=== PATIENT | female | born 2005 | race Caucasian/White ===

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

== ENCOUNTER 2024-07-20 02:13 | Emergency (ER) | payer BC, SELFPAY ==
[2024-07-20] VITALS (9 sets, daily range): BP systolic 95–116; BP diastolic 62–74; PULSE 72–87; RESP 12–20; TEMP 36.4; O2SAT 97–100; BMI 21.8
--- OUTSIDE RECORDS SUMMARY | 2024-07-20 02:16 | XMS_ITS | Clinical Summary ---
Author Organization [employer] [facility] Address [address] [place] [id number] Care Team Providers Care Construction Plant Operator Name Role Phone Umu Marrufo MD Primary Care Provi soumya Allergies No known active allergies Medications omeprazole (PRILOSEC) 20 mg Delayed-Release capsule Take 20 mg by mouth. Active dicyclomine (BENTYL) 20 mg tabletIndications :Other constipation Take 1 Tablet (20 mg) by mouth 2 times daily if needed (IBS). 60 Tablet 1 3 Active escitalopram oxalate (LEXAPRO) 20 mg tabletIndications :Obsessive-compul sive disorder, unspecified type Take 1 Tablet (20 mg) by mouth once daily. 30 Tablet 3 Active busPIRone 7.5 mg tablet Take 7.5 mg by mouth two times daily. 3 Active hydrOXYzine HCL (ATARAX) 25 mg tablet TAKE 1 TO 2 TABLETS BY MOUTH THREE TIMES DAILY NEEDED FOR ANXIETY OR NAUSEA 3 Active levonorgestrel-et hinyl estrad, 0.15-30 mg-mcg, (LEVLEN; NORDETTE-28) 0.15-0.03 mg tabletIndications :Irregular menstrual bleeding Take 1 Tablet by mouth once daily. 84 Tablet 3 3 Active Active Problems Problem Noted Date Diagnosed Date Obsessive-compulsive disorder 07/15/2022 Bulimia nervosa 07/15/2022 Other constipation 10/10/2019 Resolved Problems Problem Noted Date Diagnosed Date Resolved Date Concussion with < 1 hr loss of consciousness 11/25/2021 Concussion with no loss of consciousness 06/23/2018 10/10/2019 Unspecified constipation 12/13/200711/2011 Hypertrophy of tonsil with adenoids 10/26/2007 12/09/2011 Chronic rhinitis 10/26/2007 12/16/2011 Encounters Date Type Department Care Team Description 04/26/2024 Transcribe Orders [facility] [address] [place] [address] Kaylee Ramírez MD from Last 3 Months Immunizations Immunization Administration Dates Next Due AMB Influenza, IIV3 (Age >=3 years)(Flu Clinic Only) 04/19/2008 COVID-19 vaccine ([employer] NTech 30mcg/0.3mL) MORIAH KAUR 09/20/2020,08/30/2020 [id number] (Pediarix) 01/02/2006,02/08,2004,10/10 DTaP-IPV (Kinrix) 12/05/2008 HIB PRP-OMP (PedvaxHIB) 01/02/2006,2004, HPV 9 (Gardasil 9) 12/02/2016,02/22/2016, 016 Hepatitis A (Peds) 12/13/2007,08/21/2006, 006 Hepatitis B (Peds) 2004 Influenza A (H1N1), Inactivated 04/27/2009 Influenza, IIV3 (Age 6-35 mos) 04/27/2009,2005,02/20/2005 Influenza, IIV4 03/06/2020,02/22/2016 MENINGOCOCCAL VACCINE 2 VIAL 2MO-55YO (MENVEO) 11/25/2021,11/06/2015 MMR 12/21/2009,08/26/2005 Meningococcal B 11/27/2022 Pneumococcal conj 7-Valent (Prevnar 7) 0 01/02/2006,02/20/2005,2004,10/10 [...] Date Recorded PHQ-2 TOTAL SCORE 2 11/27/2022 Financial Resource Strain Answer Date R ecorded Difficulty of Paying Living Expenses Not on file 05/09/2021 Difficulty of Paying Living Expenses Not on file 05/09/2021 Comments No Sex and Gender Information Value Date Recorded Sex Assigned at Not on file Legal 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 Gender Identity Not on file Sexual Orientation Not on file Occupation Industry Job Start Date Job End Date Student Not on file Not on file Not on file Obstetrics History Para Term AB IAB SAB Ectopic Multiple Livin g Live Births 0 0 0 0 0 0 0 0 0 0 0 Last Filed Vital Signs Vital Sign Reading Time Taken Comments Blood Pressure 90/60 11/27/2022 2:11 PM CDT Pulse 60 11/27/2022 2:11 PM CDT Temperature 36.5 C (97.7 F) 04/10/2022 8:41 AM RUBBER STAMP DIES INSPECTOR Respiratory Rate 18 05/05/2019 5:15 PM RUBBER STAMP DIES INSPECTOR Oxygen Saturation 98% 11/27/2022 2:11 PM CDT [...] Hepatitis C screening for age 18-79 2022 BMI (ht and wt on same day) for age 18+ 11/28/2023 11/27/2022 Depression screening for age 12+ 11/28/2023 11/27/2022, 07/15/2022, 11/25/2021, Additional history exists Well Child Check for age 3-20 11/28/2023 11/27/2022, 11/25/2021, 12/05/2019, Additional history exists Influenza Vaccine (#1) 2024 , 02/22/2016, 04/27/2009, Additional history exists Tetanus booster 11/05/2025 11/06/2015 Pneumococcal series for age 6-49 Aged Out 01/02/2006, 02/20/2005, 2004, Additional history exists No longer eligible based on patient's age to complete this topic Tdap Completed 11/06/2015 HPV series for age 9-26 Completed 12/03/19 17, 02/22/2016, 11/06/2015 Meningococcal series for age 11-21 Completed 11/25/2021, 11/06/2015 COVID-19 vaccine series Completed 01/21/20 24, 05/06/2021, 09/20/2020, Additional history exists Insurance [employer] CHOICE MEDICA CHOICE Care Teams Construction Plant Operator Relationship Specialty Start Date End Date Umu Marrufo MD [address] [place] [address] PCP - General Pediatric 12/15/11
[2024-07-20 02:43] LABS: Basophils Absolute Auto 0.02 K/uL (0.00-0.30); Basophils Percent Auto 0.3 % (0.0-3.0); Eosinophils Absolute Auto 0.07 K/uL (0.00-0.50); Eosinophils Percent Auto 0.9 % (0.0-7.0); Hematocrit 35.1 % (33.0-51.0); Hemoglobin* 11.7 gm/dL (12.0-16.0); Immature Granulocytes Abs Auto 0.01 K/uL (0.00-0.30); Immature Granulocytes Pct Auto 0.1 %; Lymphocytes Percent Auto 44.6 % (20-44); Mean Corpuscular HGB Conc 33 gm/dL (32-36); Mean Corpuscular Hemoglobin 31 pg (26-34); Mean Corpuscular Volume 94 fL (80-100); Monocytes Percent Auto 6.5 % (0.0-11.0); Neutrophils Absolute Auto 3.64 K/uL (1.7-7.0); Neutrophils Percent Auto 47.6 % (42.0-72.0); Platelet Count* 288 K/uL (140-440); RDW Coefficient of Variation % 12.8 % (11.5-15.5); Red Blood Count 3.73 m/uL (4.00-5.20); White Blood Count* 7.66 K/uL (4.50-11.00)
[2024-07-20 02:48] LABS: Slide Review Reflex No
--- NOTE | 2024-07-20 02:48 | ED.HEATRA ---
HPI - Head Injury General Time Seen by Provider: 02:48 Date Seen: 07/20/24 Chief complaint: Head Injury/Pain Stated complaint: Hit head today after concussion Thursday Time Seen by Provider: 07/20/24 02:42 Source: patient Mode of arrival: ambulatory Limitations: no limitations History of Present Illness HPI Narrative: 18-year-old female who presents today with head injury. Patient had a fall 2 days ago, hit her head, evaluated outside facility. Subsequently had another fall today, says she got lightheaded and passed out, has episodes like this before. Denies preceding chest pain or palpitations. Brought in tonight because of nausea and fatigue. Patient says she is scared to go to sleep, says she has not been eating much because she is not hungry. Recent cough and upper respiratory infection but that has resolved. Took Tylenol for this just prior to coming in. Photophobia. No numbness or tingling in the arms or legs, no neck pain. Related Data Home Medications ?Medication ?Instructions ?Recorded ?Confirmed buspirone 15 mg tablet 15 mg PO BID 05/01/23 05/01/23 escitalopram oxalate 20 mg tablet 20 mg PO DAILY 05/01/23 05/01/23 hydroxyzine HCl 25 mg tablet 25 - 50 mg PO 3XD PRN anxiety 05/01/23 05/01/23 levonorgestrel 0.15 mg-ethinyl 1 tab PO DAILY 05/01/23 05/01/23 estradiol 0.03 mg tablet (Michaelo (28)) pantoprazole 40 mg tablet,delayed 40 mg PO DAILY 09/24/23 release Allergies Allergy/AdvReac Type Severity Reaction Status Date / Time No Known Drug Allergies Allergy Verified 09/24/23 11:41 [facility] Medical History Depression ?F32.A - Depression, unspecified (ICD-10) Anxiety ?F41.9 - Anxiety disorder, unspecified (ICD-10) Surgical History History of laparoscopic cholecystectomy ?Z90.49 - Acquired absence of other specified parts of digestive tract (ICD-10) Social History Smoking Status: Never smoker Second hand tobacco smoke exposure: No How often do you have a drink containing alcohol: never AUDIT-C Alcohol total score: 0 Non-prescribed substance use: denies use Exam Narrative: Exam Narrative: General: Well-developed and well-nourished, no acute distress Head: Atraumatic and normocephalic Eyes: Pupils are equal reactive, extraocular motions intact, conjunctiva clear ENT: External nose and ears are normal, posterior pharynx without erythema or exudate Neck: No midline cervical tenderness, full spontaneous range of motion the neck, trachea midline, no adenopathy Heart: Regular rate and rhythm no murmurs or thrills Lungs: Clear to auscultation bilaterally without wheezes or crackles Abdomen: Soft, nontender, nondistended with active bowel sounds Musculoskeletal: No tenderness, deformity, or edema Neurologic: Awake, slow to answer questions, lays with eyes closed and mumbles answers, no focal neurologic deficits, resists eye opening Psych: Mood and affect are appropriate Skin: No rashes Const: Vital Signs, click to edit/add: Vital Signs - 24 hr 07/20/24 02:21 07/20/24 03:01 07/20/24 03:15 Temperature 97.6 F Pulse Rate 76 87 Pulse Rate [Pulse Oximeter] 85 Respiratory Rate 16 12 Blood Pressure 106/67 Blood Pressure [Ri ght Upper Arm] 108/74 Pulse Oximetry 97 100 100 Oxygen Delivery Me thod Room Air 07/20/24 03:31 Temperature Pulse Rate 72 Pulse Rate [Pulse Oximeter] Respiratory Rate 15 Blood Pressure 106/62 Blood Pressure [Ri ght Upper Arm] Pulse Oximetry 98 Oxygen Delivery Me thod Course Course ED Course: Reviewed prior emergency department visit from July 18 was patient was seen after a head injury, reports that she stood up and passed out, fell and hit her head. Was seen at an outside department, CT scan of the head was performed which was negative. prior cardiogram May 2024 was normal. Patient seen today with headache, fatigue, nausea decreased appetite in the setting of consecutive head injuries. History of syncope. On exam here, no external signs of head trauma, no focal neurologic deficits. Suspect concussion syndrome, labs ordered to evaluate for other possible causes of patient's fatigue and syncope. No tachycardia, hypoxia, chest pain, shortness of breath suggest pulmonary emboli, no D-dimer or CT PE indicated at this time. EKG independently interpreted by me performed at 2:26 a.m. demonstrates sinus rhythm with nonspecific ST changes, rate 82, ST depression 2, 3, AVF as well as V1. Reviewed prior from outside hospital from April 2024, ST depression and T-wave inversion in 2, 3, AVF are new. Reevaluation(s) Time of Reevaluation #1: 04:18 Reevaluation #1: Labs independently interpreted by me with normal CBC other than mild anemia, normal basic panel, negative troponin, normal magnesium. Repeat EKG was performed and previously seen ST abnormalities are new. Will discuss with Cardiology. CT scan of the head and panel interpreted by me negative for acute findings, radiology interpretation agrees. EKG independently interpreted by me performed at 4:04 a.m. demonstrates sinus rhythm rate 67, nonspecific T-wave changes with slight depression in to, previously seen depressions in 3 and AVF are absent. QTC 405, IA 138. Time of Reevaluation #2: 04:58 Reevaluation #2: Care discussed with Dr. Rivas, cardiology at [facility] who recommends Holter monitor/Zio patch, no further recommendations at this time patient is stable for discharge Vital Signs Vital signs: Initial Vital Signs Temperature 97.6 F 07/20/24 02:21 Temperature Source Temporal Artery Scan 07/20/24 02:21 Pulse Rate 85 07/20/24 02:21 Respiratory Rate 16 07/20/24 02:21 Blood Pressure 108/74 07/20/24 02:21 Blood Pressure Mean 85 07/20/24 02:21 Pulse Oximetry 97 07/20/24 02:21 Oxygen Delivery Method Room Air 07/20/24 02:21 Vital Signs Temperature 97.6 F 07/20/24 02:21 Pulse Rate 85 07/20/24 02:21 Respiratory Rate 16 07/20/24 02:21 Blood Pressure 108/74 07/20/24 02:21 Pulse Oximetry 97 07/20/24 02:21 Oxygen Delivery Method Room Air 07/20/24 02:21 Temperature 97.6 F 07/20/24 02:21 Pulse Rate 72 07/20/24 03:31 Respiratory Rate 15 07/20/24 03:31 Blood Pressure 106/62 07/20/24 03:31 Pulse Oximetry 98 07/20/24 03:31 Oxygen Delivery Method Room Air 07/20/24 02:21 Medications Administered Medications: Discontinued Medications Generic Name Dose Route Start Last Admin Trade Name Cici PRN Reason Stop Dose Admin Sodium Chloride 500 mls @ 500 mls/hr 07/20/24 02:58 07/20/24 03:50 0.9 % Sodium Chloride 500 Ml IV 07/20/24 03:57 Infused .Q1H ONE Infusion Ketorolac Tromethamine 15 mg 07/20/24 02:58 07/20/24 03:04 Ketorolac 15 Mg/Ml Inj IVP 07/20/24 02:59 15 mg ONCE ONE Administration Ondansetron HCl 4 mg 07/20/24 02:58 07/20/24 03:04 Ondansetron 2 Mg/Ml Inj IVP 07/20/24 02:59 4 mg ONCE ONE Administration MDM - Head Injury Lab Data Labs: Lab Results 07/20/24 07/20/24 Range/Units 02:30 04:41 WBC 7.66 (4.50-11.00) K/uL RBC 3.73 L (4.00-5.20) m/uL Hgb 11.7 L (12.0-16.0) gm/dL Hct 35.1 (33.0-51.0) % MCV 94 (80-100) fL MCH 31 (26-34) pg MCHC 33 (32-36) gm/dL RDW Coeff of Jatin 12.8 (11.5-15.5) % Plt Count 288 (140-440) K/uL Neut % (Auto) 47.6 (42.0-72.0) % Lymph % (Auto) 44.6 H (20-44) % Yancey % (Auto) 6.5 (0.0-11.0) % Eos % (Auto) 0.9 (0.0-7.0) % Baso % (Auto) 0.3 (0.0-3.0) % Neut # (Auto) 3.64 (1.7-7.0) K/uL Lymph # (Auto) 3.40 H (0.90-2.90) K/uL Yancey # (Auto) 0.50 (0.00-0.90) K/UL Eos # (Auto) 0.07 (0.00-0.50) K/uL Baso # (Auto) 0.02 (0.00-0.30) K/uL Abs Immat Gran (auto) 0.01 (0.00-0.30) K/uL Imm/Tot Granulo (auto) 0.1 % Sodium 138 (135-149) mmol/L Potassium 3.7 (3.6-5.1) mmol/L Chloride 105 (96-114) mmol/L Carbon Dioxide 25 (20-32) mmol/L Anion Gap 8 (7-15) mEq/L BUN 9 (5-24) mg/dL Creatinine 0.6 (0.6-1.2) mg/dL Estimated Creat Clear 141.18 Estimated GFR 133 ml/min Glucose 82 (60-115) mg/dL Calcium 9.0 (8.7-10.8) mg/dL Magnesium 2.0 (1.5-2.6) mg/dL Troponin I < 0.01 L (0.01-0.04) ng/mL POC Troponin I 0.00 L (0.01-0.04) ng/ml Discharge Plan Discharge Clinical Impression: Concussion without loss of consciousness, Recurrent syncope Patient Disposition: Home w/ Parent or Adult Condition: Stable Instructions: Syncope (ED), Concussion (ED), Post Concussion Syndrome (ED) Additional Instructions: Lots of rest, make sure maintaining hydration. Avoid alcohol, caffeine Follow-up with your primary care doctor for further evaluation and treatment Activity Level: Activity as Tolerated Discharge Diet: Regular Diet Detail: Oral fluid intake should be encouraged to a target of 3 L daily and a daily salt intake of 8 to 12 g of sodium chloride (3.2 to 4.8 g of sodium) Available sources of sodium include table salt, sports tablets, sports beverages, oral rehydration salts, and some soups. Prescriptions: No Action pantoprazole 40 mg tablet,delayed release (DR/EC) 40 mg PO DAILY buspirone 15 mg tablet 15 mg PO BID levonorgestrel-ethinyl estrad [Luivelo (28)] 0.15-0.03 mg tablet 1 tab PO DAILY hydroxyzine HCl 25 mg tablet 25 - 50 mg PO 3XD PRN (Reason: anxiety) escitalopram oxalate 20 mg tablet 20 mg PO DAILY Follow Up/Referrals: Umu Marrufo MD [Primary Care Provider] - Stand Alone Forms: SeeMore Interactive Info Instructions
[2024-07-20 02:58] LABS: Chloride* 105 mmol/L (96-114)
[2024-07-20 02:59] LABS: Potassium* 3.7 mmol/L (3.6-5.1); Sodium* 138 mmol/L (135-149)
[2024-07-20 03:02] LABS: Anion Gap 8 mEq/L (7-15); Blood Urea Nitrogen* 9 mg/dL (5-24); Carbon Dioxide* 25 mmol/L (20-32); Creatinine* 0.6 mg/dL (0.6-1.2); Est. Creatinine Clearance* 141.18; Estimated Glomerular Filt Rate 133 ml/min; Glucose* 82 mg/dL (60-115)
[2024-07-20] MEDS: 0.9 % SODIUM CHLORIDE 500 ML 500 ML IV (03:02)
--- OUTSIDE RECORDS SUMMARY | 2024-07-20 03:03 | XMS_ITS | Clinical Summary ---
Author Organization [employer] [facility] Address [address] [place] [address] Care Team Providers Care Business Team Leader Name Role Phone Umu Marrufo MD Primary [...] Department Care Team Description 04/26/2024 Transcribe Orders [facility] [address] [place] [address] Kaylee Ramírez MD from Last 3 Months Immunizations Immunization Administration Dates Next Due AMB Influenza, IIV3 (Age >=3 years)(Flu Clinic Only) 04/19/2008 COVID-19 vaccine ([employer] NTech 30mcg/0.3mL) MORIAH KAUR 09/20/2020,08/30/2020 [id number] (Pediarix) 01/02/2006,02/08,2004,10/10 DTaP-IPV (Kinrix) 12/05/2008 HIB PRP-OMP [...] on file 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
[2024-07-20] MEDS: ONDANSETRON 2 MG/ML inj 4 MG IVP (03:04)
[2024-07-20] MEDS: KETOROLAC 15 MG/ML inj IVP (03:04)
[2024-07-20 03:28] LABS: Troponin I* < 0.01 ng/mL (0.01-0.04)
== END 2024-07-20 05:23 | disposition home or self-care (01) ==
PROVIDERS: Emergency Provider Family Medicine; PCP Pediatrics
DX: S06.0X0A Concussion without loss of consciousness, initial encounter (principal); W19.XXXA Unspecified fall, initial encounter; R55 Syncope and collapse
CPT/HCPCS: 36415; 70450; 80048; 83735; 84484; 85025; 93005; 96374; 96375; 99284; 99285; J1885; J2405; J7030

== ENCOUNTER 2025-05-08 13:44 | Emergency (ER) | payer BC, SELFPAY ==
--- OUTSIDE RECORDS SUMMARY | 2025-05-08 13:48 | XMS_ITS | Clinical Summary ---
Author Organization [facility] Address [address] [place] [id number] Care Team Providers Care Vice President Biostatistics Name Role Phone Clinician, Not Found MD Primary Care Provider Un available Source Comments You are receiving this document as you are listed as the primary care provider,follow-up provider, or the patient has been referred to you for consultation.This is in compliance with the Medicare and[facility]ca[facility] EHR Incentive Program,which states Providers who transition their patient to another setting of careor provider of care or refers their patient to another provider of care shouldprovide summary care record for each transition of care or referral. [employer] Allergies No known active allergies Medications MedicationSigDispense QuantityRefillsLast FilledStart DateEnd DateStatus FLUoxetine (PROZAC) 20 MG capsule Take 60 mg by mouth daily.Active linaCLOtide (LINZESS OR) Active dicyclomine (BENTYL) 20 MG tablet Take 20 mg by mouth 4 times daily before meals and at bedtime.Active omeprazole (PRILOSEC) 20 MG capsule Take 20 mg by mouth daily. Take 1 hour before a meal.Active Levonorgestrel-Ethinyl Estrad (VIENVA OR) Active Active Problems ProblemNoted DateDiagnosed DateIrritable bowel syndrome with constipation 08/29/2021GERD (gastroesophageal reflux disease)2Bulimia nervosa 08/22/2021GAD (generalized anxiety disorder)2Current moderate episode of major depressive disorder without prior icadzqq3708/22/2021 Immunizations ImmunizationAdministration DatesNext DuePfizer Monovalent 12+ Purple Top 05/06/2021,09/21/2020,08/30/2020 Social History Tobacco UseTypesPacks/DayYears UsedDateSmoking Tobacco: NeverSmokeless Tobacco: NeverAlcohol UseStandard Drinks/WeekCommentsNever0 (1 standard drink = 0.6 oz pure alcohol)CommentsUnknownSex and Gender InformationValueDate Recorded Sex Assigned at BirthNot on fileLegal DgaTftjpc82/15/2022 10:08 AM CSTGender IdentityNot on fileSexual OrientationNot on file Last Filed Vital Signs Vital SignReadingTime TakenCommentsBlood Migzsaih29/6306 1:29 PM CDT Bjekf387610/15/2021 1:29 PM OEKZvrqabdysbx11.8 ??C (98.2 ??F)10/15/2021 1:27 PM CDTRespiratory Rate--Oxygen Saturation--Inhaled Oxygen Concentration--Utuetw77.8 kg (131 lb 12.8 oz)10/15/2021 1:27 PM ALRZeulhp861.6 cm (5' 3.62)10/15/2021 1:27 PM CDTBody Mass Index22.8910/15/2021 1:27 PM CDT Plan of Treatment Health MaintenanceDue DateLast EbgjDunsgsntKzfiswlbo72/08/2005Hep C Screening (Preventive Services)2004MenB Immunization Odeyqsrgub47/08/2005HIV Screening (Preventive Services)2020MCV4 Vaccine (2 - 2-dose series) Adult Preventive Visit2022HepB Vaccine (1)08/17/2023 COVID-19 Vaccine ( season), 09/21/2020, 08/30/2020Influenza Vaccine (#1), 02/22/2016, 04/27/2009, Additional history existsDTaP/Tdap/Td Vaccine (7 - Tdap)6011/06/2015, 12/05/2008, 01/02/2006, Additional history existsZoster/Shingles Vaccine (1 of 2)2054Hib ArtafrkCintmlmod16/25/2006, 2004, 2004Pneumococcal VaccineAged Out01/02/2006, 02/20/2005, 2004, Additional history existsNo longer eligible based on patient's age to complete this topicHepA Vaccine Kzesptaqf28/04/2008, 08/21/2006, 08/26/2005IPV (Polio) VaccineCompleted 12/05/2008, 01/02/2006, 02/20/2005, Additional history existsHPV Vaccine Smrjzjrpu11/25/2017, 02/22/2016, 11/06/2015 Insurance * Guarantor: Ian BIANCHI TypeRelation to PatientDate of BirthPhone Billing AddressPersonal/PeqpplNopkyo[birth year][address] [place] [id number] Care Teams Team MemberRelationshipSpecialtyStart DateEnd Date Clinician, Not Found, [place] [address] PCP - [facility]08/22/21
--- OUTSIDE RECORDS SUMMARY | 2025-05-08 13:48 | XMS_ITS | Clinical Summary ---
Author Organization [facility] Address [address] [place] [id number] Care Team Providers Care Derrick Boat Leverman Name Role Phone Umu Marrufo MD Primary Care Provi soumya Allergies No known active allergies Medications MedicationSigDispense QuantityRefillsLast FilledStart DateEnd DateStatus omeprazole (PRILOSEC) 20 mg Delayed-Release capsule Take 20 mg by mouth.Active dicyclomine (BENTYL) 20 mg tablet Indications:Other constipationTake 1 Tablet (20 mg) by mouth 2 times daily if needed (IBS). 60 Tablet ctive escitalopram oxalate (LEXAPRO) 20 mg tablet Indications:Obsessive-compulsive disorder, unspecified typeTake 1 Tablet (20 mg) by mouth once daily. 30 Tablet 07/15/2022ctive busPIRone 7.5 mg tablet Take 7.5 mg by mouth two times daily.11/17/2022ctive hydrOXYzine HCL (ATARAX) 25 mg tablet TAKE 1 TO 2 TABLETS BY MOUTH THREE TIMES DAILY NEEDED FOR ANXIETY OR NAUSEA 10/02/2022ctive levonorgestrel-ethinyl estrad, 0.15-30 mg-mcg, (LEVLEN; NORDETTE-28) 0.15-0.03 mg tablet Indications:Irregular menstrual bleedingTake 1 Tablet by mouth once daily. 84 Tablet ctive Active Problems ProblemNoted DateDiagnosed DateObsessive-compulsive moqvpzcz52/07/2023Bulimia orcngdt4107/15/2022Other /01/2020 Resolved Problems ProblemNoted DateDiagnosed DateResolved DateConcussion with < 1 hr loss of jiawfhabwhsrb06oncussion with no loss of consciousness Unspecified pnjnncdopxxf16Hypertrophy of tonsil with dnfjalnh78Chronic knajfojq52 Immunizations ImmunizationAdministration DatesNext DueAMB Influenza, IIV3 (Age >=3 years)(Flu Clinic Only)04/19/2008COVID-19 vaccine ([facility] [facility] [employer] 30mcg/0.3mL) PF, MDV 09/20/2020,0824RRbC-LwaX-FGG (Pediarix)01/02/2006,02/20/2005,2004, 2004DTaP-IPV (Kinrix)12/05/2008HIB PRP-OMP (PedvaxHIB)01/02/2006, 2004,2004HPV 9 (Gardasil 9)12/02/2016,02/22/2016,11/06/2015Hepatitis A (Peds)12/13/2007,08/21/2006,08/26/2005Hepatitis B (Peds)2004Influenza A (H1N1), Vjhcnjpwbhm22/18/2009Influenza, IIV3 (Age 6-35 mos)04/27/2009,03/06/2006 ,02/20/2005Influenza, HLY583,02/22/2016MENINGOCOCCAL VACCINE 2 VIAL 2MO- 55YO (MENVEO)11/25/2021,11/06/2015MMR12/21/2009,08/26/2005Meningococcal B 3Pneumococcal conj 7-Valent (Prevnar 7)01/02/2006,02/20/2005,2004 ,2004Tdap11/06/2015Varicella Mwwxlfr1712/21/2009,08/26/2005 Family History Medical HistoryRelationNameCommentsAsthmaBrother 1GI DiseaseBrother 2GERDGI DiseaseFatherGERDHeart DiseaseMaternal GrandmotherHyperlipidemiaOtherDad's side AsthmaPaternal UncleAnesthesia ProblemNo Family HistoryDiabetesNo Family History RelationNameStatusCommentsBrother 1Brother 2FatherMaternal GrandmotherOther Paternal Uncle Social History Tobacco UseTypesPacks/DayYears UsedDateSmoking Tobacco: NeverSmokeless Tobacco: Never Tobacco Cessation:Counseling Given: No Comments:no exposure Alcohol UseStandard Drinks/WeekCommentsNo0 (1 standard drink = 0.6 oz pure alcohol)PHQ-2AnswerDate RecordedPHQ-2 TOTAL TETLG106Financial Resource StrainAnswerDate RecordedDifficulty of Paying Living ExpensesNot on file 1Difficulty of Paying Living ExpensesNot on file1 CommentsNoSex and Gender InformationValueDate RecordedSex Assigned at BirthNot on fileLegal OabUjmznx31/14/2013 7:09 AM CSTGender IdentityNot on fileSexual OrientationNot on fileOccupationIndustryJob Start DateJob End DateStudentNot on fileNot on fileNot on file Obstetrics History GravidaParaTermPretermABIABSABEctopicMultipleLivingLive [id number] Last Filed Vital Signs Vital SignReadingTime TakenCommentsBlood Ryccpcia06/60011/27/2022 2:11 PM CDT Mfxal0910/20/2023 2:11 PM GXZIegwhmzlilf81.5 ??C (97.7 ??F)04/10/2022 8:41 AM CSTRespiratory Mwpe505107/06/2018 5:15 PM CSTOxygen Qreemsivpg55%11/27/2022 2:11 PM CDTInhaled Oxygen Concentration--Gymexp64.9 kg (136 lb 6.4 oz)11/27/2022 2:11 PM VMXRkomew857.6 cm (5' 3.23)11/27/2022 2:11 PM CDTBody Mass Index23.99 11/27/2022 2:11 PM CDT Plan of Treatment Health MaintenanceDue DateLast DoneCommentsHIV for age 15-65008/17/2019Hepatitis C screening for age 18-793BMI (ht and wt on same day) for age 18+ /3Depression screening for age 12+/, 07/15/2022, 11/25/2021, Additional history existsWell Child Check for age 3-20 /, 11/25/2021, 12/05/2019, Additional history existsCOVID-19 vaccine series (2024- season)/04/2024, 05/06/2021, 09/20/2020, Additional history existsInfluenza Vaccine (#1)/, 02/22/2016, 04/27/2009, Additional history existsTetanus jdpcbvu72 Hepatitis B series for 19+Spugxiuqo45/25/2006, 02/20/2005, 2004, Additional history existsPneumococcal series for age 6-49Aged Out01/02/2006, 02/20/2005, 2004, Additional history existsNo longer eligible based on patient's age to complete this topicHPV series for age 9-52Byjulcojs54/25/2017, 02/22/2016, 11/06/2015Meningococcal series for age 11-05Fblkhomjh13/18/2022, 11/06/[address] [facility] [facility] [address] * Guarantor: Mitra Bianchi TypeRelation to PatientDate of BirthPhone Billing AddressPersonal/NqxkfuHowjtk01/10/1966 [address] [place] [address] [place] [id number] Care Teams Team MemberRelationshipSpecialtyStart DateEnd Date [place] [address] [address] PCP - GeneralPediatric12/15/11
[2025-05-08 13:56] VITALS: BP 116/67; PULSE 116; RESP 20; TEMP 37.2; O2SAT 100; BMI 24.8
--- NOTE | 2025-05-08 14:18 | ED.GENADULT ---
HPI - General Adult General Date Seen: 05/08/25 <Mesha Rowley MD - Last Filed: 05/11/25 00:08> Chief complaint: Abdominal Pain <Mesha Rowley MD - Last Filed: 05/11/25 00:08> Stated complaint: fever, R abdomen pain <Mesha Rowley MD - Last Filed: 05/11/25 00:08> Time Seen by Provider: 05/08/25 13:47 <Mesha Rowley MD - Last Filed: 05/11/25 00:08> History of Present Illness HPI narrative: Patient is a 19-year-old who presents here with her mom for evaluation of multiple symptoms. She has been feeling ill since yesterday, complains of severe right ear pain, severe sore throat, and severe right-sided abdominal pain which now radiates up into the right chest. She notes a presumed fever at home although she has not checked her temperature. She took Tylenol last night but has not taken anything today. She has had some nausea no vomiting. Denies diarrhea or constipation. No urinary symptoms. She has also had a cough. She is status post cholecystectomy and tonsillectomy. <Mesha Rowley MD - Last Filed: 05/11/25 00:08> Related Data Home medications: Home Medications ?Medication ?Instructions ?Recorded ?Confirmed buspirone 15 mg tablet 15 mg PO BID 05/01/23 05/08/25 hydroxyzine HCl 25 mg tablet 25 - 50 mg PO 3XD PRN anxiety 05/01/23 05/08/25 pantoprazole 40 mg tablet,delayed 40 mg PO DAILY 09/24/23 05/08/25 release <Mesha Rowley MD - Last Filed: 05/11/25 00:08> Allergies/adverse reactions: Allergies Allergy/AdvReac Type Severity Reaction Status Date / Time No Known Drug Allergies Allergy Verified 05/08/25 13:56 <Mesha Rowley MD - Last Filed: 05/11/25 00:08> Review of Systems Status of ROS: Reports: 10 or more systems reviewed and unremarkable except as noted in History and below <Mesha Rowley MD - Last Filed: 05/11/25 00:08> [facility] Medical History: Medical History Depression ?F32.A - Depression, unspecified (ICD-10) Anxiety ?F41.9 - Anxiety disorder, unspecified (ICD-10) <Mesha Rowley MD - Last Filed: 05/11/25 00:08> Surgical History: Surgical History History of laparoscopic cholecystectomy ?Z90.49 - Acquired absence of other specified parts of digestive tract (ICD-10) <Mesha Rowley MD - Last Filed: 05/11/25 00:08> Social History: Social History Smoking Status: Never smoker Second hand tobacco smoke exposure: No How often do you have a drink containing alcohol: never AUDIT-C Alcohol total score: 0 Non-prescribed substance use: denies use <Mesha Rowley MD - Last Filed: 05/11/25 00:08> Exam Narrative: Exam Narrative: Vital signs reviewed In general, an alert, nontoxic Head: Normocephalic, atraumatic. Eyes: Sclera clear. Pupils equal and reactive. ENT: Mucous membranes moist. throat is normal, tonsils absent. TMs normal bilaterally. Neck: Supple without adenopathy. No stridor. Heart: Mildly tachycardic, no murmur. Lungs: Clear. No increased work of breathing, crackles or wheezes. No CVA tenderness. Abdomen: Abdomen is generally soft, she has voluntary guarding throughout her abdomen but states that it is only tender in the right side of her abdomen and the epigastrium. Extremities: Well perfused, pulses intact. No significant edema. Neurologic: Alert, conversant. Speech fluent, face symmetric. Moves all extremities equally. Skin: Warm, dry well perfused. Affect: Tearful <Mesha Rowley MD - Last Filed: 05/11/25 00:08> Const: Vital Signs, click to edit/add: Vital Signs - 24 hr 05/08/25 13:56 Temperature 98.9 F Pulse Rate [Left P ulse Oximeter] 116 H Respiratory Rate 20 Blood Pressure [Ri ght Upper Arm] 116/67 Pulse Oximetry 100 Oxygen Delivery Me thod Room Air <Mesha Rowley MD - Last Filed: 05/11/25 00:08> Vital Signs, click to edit/add: Vital Signs - 24 hr 05/08/25 13:56 Temperature 98.9 F Pulse Rate [Left P ulse Oximeter] 116 H Respiratory Rate 20 Blood Pressure [Ri ght Upper Arm] 116/67 Pulse Oximetry 100 Oxygen Delivery Me thod Room Air <Camilo León MD - Last Filed: 05/08/25 19:11> Course Course ED Course: Patient presents with multiple flu like symptoms, reported fever, afebrile here, as well as significant abdominal pain. Unclear whether the abdominal pain is just part of a larger illness or whether this represents a coincidental alternative process such as ovarian cyst, kidney stone, appendicitis, ovarian torsion, ectopic , etcetera. as such, I have ordered lab work as well as a urine, urine test, chest x-ray. She feels this pain up in the right upper chest is probably related to her GERD as she did not take her medication today but will rule out a pneumonia, Pneumothorax, etcetera. Will give some normal saline, Toradol, Zofran for symptomatic relief. Chest x-ray by my review negative, radiology read negative as well. Blood work is notable for mildly increased white blood cell count 13 with a left shift at 87%. Electrolytes, LFTs, lipase all normal. Lactate is normal. Urinalysis likewise negative aside from trace ketones, test negative, viral swab and strep all negative as well. She responded well to Toradol and Zofran initially but pain did come back, she continues to complain of right-sided abdominal pain I think ruling out an intra-abdominal source such as appendicitis, ovarian cyst etcetera it is worthwhile. CT scan of the abdomen ordered. Signed out to oncoming physician for final disposition and plan <Mesha Rowley MD - Last Filed: 05/11/25 00:08> Reevaluation(s) Time of Reevaluation #1: 16:58 <Camilo León MD - Last Filed: 05/08/25 19:11> Reevaluation #1: Reviewed radiology interpretation CT scan which shows prominence of the right adnexa, given the patient is having right lower quadrant abdominal pain, pelvic ultrasound is ordered IMPRESSION: 1. Subtle asymmetric prominence of the right adnexa compared to the left, not well evaluated on CT. A follow up pelvic ultrasound may be performed for further evaluation if this patient is having right-sided pelvic pain. 2. Indeterminate thickening of the cecum and proximal ascending colon, likely due to underdistention rather than colitis. Partially obscured appendix appears to be nondilated and without ancillary finding of acute appendicitis. <Camilo León MD - Last Filed: 05/08/25 19:11> Time of Reevaluation #2: 18:47 <Camilo León MD - Last Filed: 05/08/25 19:11> Reevaluation #2: IMPRESSION: Intrauterine device which appears to be in appropriate position. Multiple tiny bilateral ovarian follicles. Nonspecific finding but recommend correlation for history of PCOS. No torsion. <Camilo León MD - Last Filed: 05/08/25 19:11> Time of Reevaluation #3: 18:48 <Camilo León MD - Last Filed: 05/08/25 19:11> Reevaluation #3: Patient recheck, discussed findings on ultrasound. No evidence for ovarian torsion, ectopic , ruptured ovarian cyst. CT scan without evidence of acute inflammatory from process in the abdomen or pelvis to explain patient's pain. Labs with mild leukocytosis and slightly elevated CRP. Patient is stable for discharge with oxycodone and Zofran for symptom management, close follow-up with primary care. Return to emergency department precautions discussed. <Camilo León MD - Last Filed: 05/08/25 19:11> Additional Reevaluation(s): 190 patient recheck, comfortable and stable for discharge <Camilo León MD - Last Filed: 05/08/25 19:11> Vital Signs Vital signs: Initial Vital Signs Temperature 98.9 F 05/08/25 13:56 Temperature Source Temporal Artery Scan 05/08/25 13:56 Pulse Rate 116 H 05/08/25 13:56 Respiratory Rate 20 05/08/25 13:56 Blood Pressure 116/67 05/08/25 13:56 Blood Pressure Mean 83 05/08/25 13:56 Blood Pressure Position Supine 05/08/25 13:56 Pulse Oximetry 100 05/08/25 13:56 Oxygen Delivery Method Room Air 05/08/25 13:56 Vital Signs Temperature 98.9 F 05/08/25 13:56 Pulse Rate 116 H 05/08/25 13:56 Respiratory Rate 20 05/08/25 13:56 Blood Pressure 116/67 05/08/25 13:56 Pulse Oximetry 100 05/08/25 13:56 Oxygen Delivery Method Room Air 05/08/25 13:56 Temperature 98.9 F 05/08/25 13:56 Pulse Rate 99 05/08/25 18:00 Respiratory Rate 18 05/08/25 18:00 Blood Pressure 98/76 05/08/25 18:00 Pulse Oximetry 99 05/08/25 18:00 Oxygen Delivery Method Room Air 05/08/25 18:00 <Mesha Rowley MD - Last Filed: 05/11/25 00:08> Initial Vital Signs Temperature 98.9 F 05/08/25 13:56 Temperature Source Temporal Artery Scan 05/08/25 13:56 Pulse Rate 116 H 05/08/25 13:56 Respiratory Rate 20 05/08/25 13:56 Blood Pressure 116/67 05/08/25 13:56 Blood Pressure Mean 83 05/08/25 13:56 Blood Pressure Position Supine 05/08/25 13:56 Pulse Oximetry 100 05/08/25 13:56 Oxygen Delivery Method Room Air 05/08/25 13:56 Vital Signs Temperature 98.9 F 05/08/25 13:56 Pulse Rate 116 H 05/08/25 13:56 Respiratory Rate 20 05/08/25 13:56 Blood Pressure 116/67 05/08/25 13:56 Pulse Oximetry 100 05/08/25 13:56 Oxygen Delivery Method Room Air 05/08/25 13:56 Temperature 98.9 F 05/08/25 13:56 Pulse Rate 99 05/08/25 18:00 Respiratory Rate 18 05/08/25 18:00 Blood Pressure 98/76 05/08/25 18:00 Pulse Oximetry 99 05/08/25 18:00 Oxygen Delivery Method Room Air 05/08/25 18:00 <Camilo León MD - Last Filed: 05/08/25 19:11> Medications Administered Medications: Discontinued Medications Generic Name Dose Route Start Last Admin Trade Name Freq PRN Reason Stop Dose Admin Sodium Chloride 1,000 mls @ 1,000 mls/hr 05/08/25 14:30 12/29/25 16:06 0.9 % Sodium Chloride 1000 Ml IV 05/08/25 15:29 Infused .Q1H YANETH Infusion Ketorolac Tromethamine 15 mg 05/08/25 14:16 05/08/25 14:46 Ketorolac 15 Mg/Ml Inj IVP 05/08/25 14:17 15 mg ONCE ONE Administration Morphine Sulfate 4 mg 05/08/25 16:08 05/08/25 16:16 Morphine 4 Mg/Ml Inj IVP 05/08/25 16:09 4 mg ONCE ONE Administration Morphine Sulfate 2 mg 05/08/25 18:22 05/08/25 18:34 Morphine 2 Mg/Ml Inj IVP 05/08/25 18:23 2 mg ONCE ONE Administration Ondansetron HCl 4 mg 05/08/25 14:16 05/08/25 14:46 Ondansetron 2 Mg/Ml Inj IVP 05/08/25 14:17 4 mg ONCE ONE Administration Ondansetron HCl 4 mg 05/08/25 18:47 05/08/25 18:57 Ondansetron 2 Mg/Ml Inj IVP 05/08/25 18:48 4 mg ONCE ONE Administration <Mesha Rowley MD - Last Filed: 05/11/25 00:08> Discontinued Medications Generic Name Dose Route Start Last Admin Trade Name Freq PRN Reason Stop Dose Admin Sodium Chloride 1,000 mls @ 1,000 mls/hr 05/08/25 14:30 05/08/25 16:06 0.9 % Sodium Chloride 1000 Ml IV 05/08/25 15:29 Infused .Q1H YANETH Infusion Ketorolac Tromethamine 15 mg 05/08/25 14:16 05/08/25 14:46 Ketorolac 15 Mg/Ml Inj IVP 05/08/25 14:17 15 mg ONCE ONE Administration Morphine Sulfate 4 mg 05/08/25 16:08 05/08/25 16:16 Morphine 4 Mg/Ml Inj IVP 05/08/25 16:09 4 mg ONCE ONE Administration Morphine Sulfate 2 mg 05/08/25 18:22 05/08/25 18:34 Morphine 2 Mg/Ml Inj IVP 05/08/25 18:23 2 mg ONCE ONE Administration Ondansetron HCl 4 mg 05/08/25 14:16 05/08/25 14:46 Ondansetron 2 Mg/Ml Inj IVP 05/08/25 14:17 4 mg ONCE ONE Administration Ondansetron HCl 4 mg 05/08/25 18:47 05/08/25 18:57 Ondansetron 2 Mg/Ml Inj IVP 05/08/25 18:48 4 mg ONCE ONE Administration <Camilo León MD - Last Filed: 05/08/25 19:11> Medical Decision Making Lab Data Labs: Lab Results 05/08/25 05/08/25 Range/Units 14:39 15:20 WBC 13.34 H (4.50-11.00) K/uL RBC 3.99 L (4.00-5.20) m/uL Hgb 12.5 (12.0-16.0) gm/dL Hct 37.5 (33.0-51.0) % MCV 94 (80-100) fL MCH 31 (26-34) pg MCHC 33 (32-36) gm/dL RDW Coeff of Jatin 12.7 (11.5-15.5) % Plt Count 242 (140-440) K/uL Neut % (Auto) 86.6 H (42.0-72.0) % Lymph % (Auto) 7.3 L (20-44) % [place] % (Auto) 5.5 (0.0-11.0) % Eos % (Auto) 0.4 (0.0-7.0) % Baso % (Auto) 0.1 (0.0-3.0) % Neut # (Auto) 11.60 H (1.7-7.0) K/uL Lymph # (Auto) 1.00 (0.90-2.90) K/uL [place] # (Auto) 0.70 (0.00-0.90) K/UL Eos # (Auto) 0.10 (0.00-0.50) K/uL Baso # (Auto) 0.00 (0.00-0.30) K/uL Abs Immat Gran (auto) 0.00 (0.00-0.30) K/uL Imm/Tot Granulo (auto) 0.1 % Sodium 136 (135-149) mmol/L Potassium 3.5 L (3.6-5.1) mmol/L Chloride 101 (96-114) mmol/L Carbon Dioxide 25 (20-32) mmol/L Anion Gap 10 (7-15) mEq/L BUN 11 (5-24) mg/dL Creatinine 0.7 (0.5-1.5) mg/dL Estimated Creat Clear 106.05 Estimated GFR 127 ml/min Glucose 101 (60-115) mg/dL Lactate 1.0 (0.5-1.9) mmol/L Calcium 9.4 (8.4-10.6) mg/dL Total Bilirubin 0.5 (0.1-1.5) mg/dL Direct Bilirubin 0.2 (0.0-0.5) mg/dL AST 27 (12-35) U/L ALT 18 (4-35) U/L Alkaline Phosphatase 66 (40-150) U/L C-Reactive Protein 1.6 H (0.5-1.0) mg/dL Total Protein 8.0 (6.0-8.3) g/dL Albumin 4.7 (3.3-5.0) g/dL Lipase 33 (23-300) U/L Urine Color Yellow (Yellow) Urine Appearance Clear (Clear) Urine pH 7.0 (5.0-8.5) Ur Specific [place] 1.025 (1.000-1.030) Urine Protein 1+ A (Negative) Urine Glucose (UA) Negative (Negative) Urine Ketones Trace A (Negative) Urine Blood Negative (Negative) Urine Nitrite Negative (Negative) Urine Bilirubin Negative (Negative) Urine Urobilinogen 0.2 (0.2-1.0) Ur Leukocyte Esterase Negative (Negative) Urine RBC 0-2 (0-2) Urine WBC 0-2 (0-5) Ur Squamous Epith Cells Few (None-Few) Amorphous Sediment Few A (None) Urine Bacteria None (None) Urine HCG, Qual Negative (Negative) SARS-CoV-2 (PCR) Negative SARS-CoV-2 (Negative) Influenza Type A (PCR) Negative PCR FLU A (Negative) Influenza Type B (PCR) Negative PCR FLU B (Negative) RSV (PCR) Negative PCR RSV (Negative) Group A Strep DNA NOT DETECTED (Not Detectd) <Mesha Rowley MD - Last Filed: 05/11/25 00:08> Lab Results 12/29/25 12/29/25 Range/Units 14:39 15:20 WBC 13.34 H (4.50-11.00) K/uL RBC 3.99 L (4.00-5.20) m/uL Hgb 12.5 (12.0-16.0) gm/dL Hct 37.5 (33.0-51.0) % MCV 94 (80-100) fL MCH 31 (26-34) pg MCHC 33 (32-36) gm/dL RDW Coeff of Jatin 12.7 (11.5-15.5) % Plt Count 242 (140-440) K/uL Neut % (Auto) 86.6 H (42.0-72.0) % Lymph % (Auto) 7.3 L (20-44) % [place] % (Auto) 5.5 (0.0-11.0) % Eos % (Auto) 0.4 (0.0-7.0) % Baso % (Auto) 0.1 (0.0-3.0) % Neut # (Auto) 11.60 H (1.7-7.0) K/uL Lymph # (Auto) 1.00 (0.90-2.90) K/uL [place] # (Auto) 0.70 (0.00-0.90) K/UL Eos # (Auto) 0.10 (0.00-0.50) K/uL Baso # (Auto) 0.00 (0.00-0.30) K/uL Abs Immat Gran (auto) 0.00 (0.00-0.30) K/uL Imm/Tot Granulo (auto) 0.1 % Sodium 136 (135-149) mmol/L Potassium 3.5 L (3.6-5.1) mmol/L Chloride 101 (96-114) mmol/L Carbon Dioxide 25 (20-32) mmol/L Anion Gap 10 (7-15) mEq/L BUN 11 (5-24) mg/dL Creatinine 0.7 (0.5-1.5) mg/dL Estimated Creat Clear 106.05 Estimated GFR 127 ml/min Glucose 101 (60-115) mg/dL Lactate 1.0 (0.5-1.9) mmol/L Calcium 9.4 (8.4-10.6) mg/dL Total Bilirubin 0.5 (0.1-1.5) mg/dL Direct Bilirubin 0.2 (0.0-0.5) mg/dL AST 27 (12-35) U/L ALT 18 (4-35) U/L Alkaline Phosphatase 66 (40-150) U/L C-Reactive Protein 1.6 H (0.5-1.0) mg/dL Total Protein 8.0 (6.0-8.3) g/dL Albumin 4.7 (3.3-5.0) g/dL Lipase 33 (23-300) U/L Urine Color Yellow (Yellow) Urine Appearance Clear (Clear) Urine pH 7.0 (5.0-8.5) Ur Specific [place] 1.025 (1.000-1.030) Urine Protein 1+ A (Negative) Urine Glucose (UA) Negative (Negative) Urine Ketones Trace A (Negative) Urine Blood Negative (Negative) Urine Nitrite Negative (Negative) Urine Bilirubin Negative (Negative) Urine Urobilinogen 0.2 (0.2-1.0) Ur Leukocyte Esterase Negative (Negative) Urine RBC 0-2 (0-2) Urine WBC 0-2 (0-5) Ur Squamous Epith Cells Few (None-Few) Amorphous Sediment Few A (None) Urine Bacteria None (None) Urine HCG, Qual Negative (Negative) SARS-CoV-2 (PCR) Negative SARS-CoV-2 (Negative) Influenza Type A (PCR) Negative PCR FLU A (Negative) Influenza Type B (PCR) Negative PCR FLU B (Negative) RSV (PCR) Negative PCR RSV (Negative) Group A Strep DNA NOT DETECTED (Not Detectd) <Camilo León MD - Last Filed: 05/08/25 19:11> Discharge Plan Discharge Clinical Impression: Acute viral syndrome, Abdominal pain, RLQ <Mesha Rowley MD - Last Filed: 05/11/25 00:08> Patient Disposition: Home w/ Parent or Adult <Mesha Rowley MD - Last Filed: 05/11/25 00:08> Condition: Stable <Mesha Rowley MD - Last Filed: 05/11/25 00:08> Instructions: Acute Abdominal Pain (DC), Viral Syndrome (ED) <Mesha Rowley MD - Last Filed: 05/11/25 00:08> Additional Instructions: Take Tylenol or ibuprofen as needed for pain fever. Take oxycodone as needed for severe pain. Take Zofran as needed for nausea or vomiting. Follow-up with primary care in 2-3 days. If your symptoms are not significantly better in 48 hours, return to the emergency department <Mesha oRwley MD - Last Filed: 05/11/25 00:08> Activity Level: Activity as Tolerated <Mesha Rowley MD - Last Filed: 05/11/25 00:08> Activity as Tolerated <Camilo León MD - Last Filed: 05/08/25 19:11> Discharge Diet: Regular <Mesha Rowley MD - Last Filed: 05/11/25 00:08> Regular <Camilo León MD - Last Filed: 05/08/25 19:11> Prescriptions: No Action pantoprazole 40 mg tablet,delayed release (DR/EC) 40 mg PO DAILY buspirone 15 mg tablet 15 mg PO BID hydroxyzine HCl 25 mg tablet 25 - 50 mg PO 3XD PRN (Reason: anxiety) <Mesha Rowley MD - Last Filed: 05/11/25 00:08> Follow Up/Referrals: Umu Marrufo MD [Primary Care Provider, Pediatrics] <Mesha Rowley MD - Last Filed: 05/11/25 00:08> Stand Alone Forms: MyHealth Info Instructions <Mesha Rowley MD - Last Filed: 05/11/25 00:08>
--- NOTE | 2025-05-08 14:19 | CRLHL7_ITS ---
For Patients: As a result of the Century Cures Act, medical imaging exams and procedure reports are released immediately into your electronic medical record. You may view this report before your referring provider. If you have questions, please contact your health care provider. INDICATION: Cough. TECHNIQUE: Chest 2 views. COMPARISON: March 22, 2018 FINDINGS: Tubes and devices: None. Lungs: Lungs are clear. No sign of infiltrate or mass. Pleura: No pleural effusion. No pneumothorax. Heart: Heart size and vasculature are normal in caliber and appearance. Rekha and Mediastinum: No enlargement. Bones and soft tissues: No significant findings. IMPRESSION: No acute intrathoracic abnormalities. Dictated by Carl Duckworth MD @ 05/08/2025 2:59:05 PM (Electronically Signed)
[2025-05-08 14:45] LABS: Lactate Sepsis w/Reflex* 1.0 mmol/L (0.5-1.9)
[2025-05-08 14:46] LABS: Hematocrit* 37.5 % (33.0-51.0); Hemoglobin* 12.5 gm/dL (12.0-16.0); Immature Granulocytes Pct Auto 0.1 %; Mean Corpuscular HGB Conc 33 gm/dL (32-36); Mean Corpuscular Hemoglobin 31 pg (26-34); Mean Corpuscular Volume 94 fL (80-100); RDW Coefficient of Variation % 12.7 % (11.5-15.5); Red Blood Count* 3.99 m/uL (4.00-5.20); White Blood Count* 13.34 K/uL (4.50-11.00)
[2025-05-08] MEDS: ONDANSETRON 2 MG/ML inj 4 MG IVP ×2 (14:46→18:57)
[2025-05-08 14:47] LABS: Immature Granulocytes Abs Auto 0.00 K/uL (0.00-0.30); Lymphocytes Absolute Auto 1.00 K/uL (0.90-2.90); Slide Review Reflex No
[2025-05-08 15:05] LABS: Albumin* 4.7 g/dL (3.3-5.0); Chloride* 101 mmol/L (96-114); Potassium* 3.5 mmol/L (3.6-5.1); Sodium* 136 mmol/L (135-149)
[2025-05-08 15:07] LABS: Blood Urea Nitrogen* 11 mg/dL (5-24); Creatinine* 0.7 mg/dL (0.5-1.5); Est. Creatinine Clearance* 106.05; Estimated Glomerular Filt Rate 127 ml/min
[2025-05-08 15:08] LABS: Alanine Aminotransferase* 18 U/L (4-35); Alkaline Phosphatase* 66 U/L (40-150); Anion Gap 10 mEq/L (7-15); Aspartate Amino Transferase* 27 U/L (12-35); Bilirubin Direct* 0.2 mg/dL (0.0-0.5); Bilirubin Total* 0.5 mg/dL (0.1-1.5); Calcium* 9.4 mg/dL (8.4-10.6); Carbon Dioxide* 25 mmol/L (20-32); Glucose* 101 mg/dL (60-115); Total Protein* 8.0 g/dL (6.0-8.3)
[2025-05-08 15:25] LABS: PCR FLU A Negative PCR FLU A (Negative); PCR FLU B Negative PCR FLU B (Negative); PCR RSV Negative PCR RSV (Negative); SARS PCR* Negative SARS-CoV-2 (Negative)
[2025-05-08 15:37] LABS: Appearance Urine Clear (Clear)
[2025-05-08 15:58] LABS: Ur HCG Qualitative* Negative (Negative)
[2025-05-08 15:59] LABS: Strep A DNA Probe* NOT DETECTED (Not Detectd)
[2025-05-08 16:00] VITALS: BP 97/74; PULSE 97; RESP 16; O2SAT 98
--- NOTE | 2025-05-08 16:06 | CRLHL7_ITS ---
For Patients: As a result of the Century Cures Act, medical imaging exams and procedure reports are released immediately into your electronic medical record. You may view this report before your referring provider. If you have questions, please contact your health care provider. INDICATION: Right-sided abdominal pain. TECHNIQUE: CT abdomen and pelvis acquired with 100 cc Omnipaque 350 IV contrast. COMPARISON: None. FINDINGS: The lung bases are clear. The liver is unremarkable. No definite liver lesion is seen. The gallbladder is absent. No biliary ductal dilatation. The spleen is normal in size. Pancreas is without stranding or main ductal dilatation. The adrenal glands are unremarkable. The kidneys are symmetric in enhancement without hydronephrosis or perinephric stranding. The urinary bladder is partially distended. No significant bladder wall thickening or stranding. There is thickening of a decompressed rectosigmoid colon, likely due to underdistention. There is stool throughout the remainder of the colon which appears nondilated. There is indeterminate thickening of the proximal ascending colon and cecum. This is likely due to underdistention. A partially obscured appendix appears to be nondilated. The small bowel is nondilated without gross evidence of a small-bowel obstruction. A small hiatal hernia is present. IUD is seen within the uterus. The ovaries are not well evaluated. There does appear to be asymmetric prominence of the right ovary compared to the left (116). No gross lymphadenopathy. Portal vein is patent. Aorta is normal in caliber. Bone windows demonstrate no suspicious lytic or sclerotic lesion. IMPRESSION: 1. Subtle asymmetric prominence of the right adnexa compared to the left, not well evaluated on CT. A follow up pelvic ultrasound may be performed for further evaluation if this patient is having right-sided pelvic pain. 2. Indeterminate thickening of the cecum and proximal ascending colon, likely due to underdistention rather than colitis. Partially obscured appendix appears to be nondilated and without ancillary finding of acute appendicitis. Please note that all CT scans at this facility use dose modulation, iterative reconstruction, and/or weight-based dosing when appropriate to reduce radiation dose to as low as reasonably achievable. Dictated by Elieser Millard MD @ 05/08/2025 4:46:50 PM (Electronically Signed)
[2025-05-08] MEDS: MORPHINE 4 MG/ML INJ IVP (16:16)
--- NOTE | 2025-05-08 16:59 | CRLHL7_ITS ---
For Patients: As a result of the Cures Act, medical imaging exams and procedure reports are released immediately into your electronic medical record. You may view this report before your referring provider. If you have questions, please contact your health care provider. INDICATION: Right lower quadrant pain. TECHNIQUE: Ultrasound pelvis transabdominal and transvaginal for better assessment or to better visualize the endometrium. Real-time sonographic images with spectral and color Doppler imaging of the ovaries were obtained. COMPARISON: CT, May 08, 2025. FINDINGS: Uterus: 8.0 x 3.4 x 4.4 cm. Normal echotexture of the myometrium. No masses. Endometrium: Transvaginal imaging was performed to better evaluate the endometrium. Endometrial thickness measures 6 mm. Intrauterine device which appears to be in appropriate position. No sign of endometrial mass or fluid. Right ovary 4.2 x 2.1 x 2.6 centimeters. Left ovary 3.0 x 1.8 x 2.8 centimeters. Multiple tiny bilateral ovarian follicles. No ovarian or adnexal masses. Normal arterial and venous blood flow is demonstrated in both ovaries. Cul-de-sac: No significant free fluid. IMPRESSION: Intrauterine device which appears to be in appropriate position. Multiple tiny bilateral ovarian follicles. Nonspecific finding but recommend correlation for history of PCOS. No torsion. Dictated by Maximo Silva MD @ 05/08/2025 6:45:12 PM (Electronically Signed)
[2025-05-08 17:00] VITALS: BP 100/64; PULSE 90; RESP 18; O2SAT 99
[2025-05-08 18:00] VITALS: BP 98/76; PULSE 99; RESP 18; O2SAT 99
== END 2025-05-08 19:28 | disposition home or self-care (01) ==
PROVIDERS: Emergency Provider Emergency Medicine; PCP Pediatrics
DX: B34.9 Viral infection, unspecified (principal); R10.31 Right lower quadrant pain
CPT/HCPCS: 36415; 71046; 74177; 76830; 76856; 80048; 80076; 81001; 81025; 83605; 83690; 85025; 86140; 87631; 87651; 93976; 96374; 96375; 99284; 99285; J1885; J2270; J2405; J7030; Q9967